=== PATIENT | male | born 1985 | race Caucasian/White ===

== ENCOUNTER → 2018-06-04 | Outpatient (CLI) | payer OTHER ==
[2018-06-04 20:10] LABS: BASO % 0.4 % (0.0-1.0); EOS # 0.3 10^3/uL (0.0-0.50); EOS % 3.9 % (0.0-3.0); HEMATOCRIT 47.5 % (42.0-52.0); HEMOGLOBIN 16.2 g/dl (13.5-17.5); LYMPH # 1.7 10^3/uL (1.5-4.5); LYMPH % 21.5 % (24.0-44.0); MEAN CORPUSCULAR HEMOGLOBIN 30.5 pg (27.0-33.0); MEAN CORPUSCULAR HGB CONC 34.1 g/dl (32.0-36.5); MEAN CORPUSCULAR VOLUME 89.3 fl (80.0-96.0); MONO # 0.7 10^3/uL (0.0-0.8); MONO % 8.4 % (0.0-5.0); NEUTROPHILS # 5.1 10^3/uL (1.8-7.7); NEUTROPHILS % 65.5 % (36.0-66.0); PLATELET COUNT, AUTOMATED 284 10^3/uL (150-450); RED BLOOD COUNT 5.32 10^6/uL (4.30-6.10); WHITE BLOOD COUNT 7.8 10^3/uL (4.0-10.0)
--- NOTE | 2018-06-05 03:46 | REP ---
Clinical: Left foot pain Technique: AP, lateral, bilateral oblique views left foot . Findings: The osseous structures and joint spaces are intact and essentially age-appropriate. Very minimal early degenerative change involving the first metatarsophalangeal joint cannot be excluded. There is no evidence for acute fracture or dislocation. Surrounding soft tissues are unremarkable. No subcutaneous emphysema or radiodense foreign body. Impression: Relatively age-appropriate examination. Mild early degenerative changes involving the first MTP joint cannot be excluded. No acute fracture or dislocation. Electronically Signed by Mustapha Chapin MD 06/05/2018 03:38 A
== END ==
LOC: M WUC 16:01
PROVIDERS: ATTEND Physician Assistant
DX: M79.672 Pain in left foot (principal)

== ENCOUNTER → 2019-08-08 | Outpatient (CLI) | payer OTHER | LOC: M LABSMTC 14:22 | PROVIDERS: ATTEND Family Medicine | DX: Z03.818 Encounter for observation for suspected exposure to other biological agents ruled out (principal); Z11.59 Encounter for screening for other viral diseases ==

== ENCOUNTER 2022-10-24 11:44 | Emergency (ER) | payer OTHER ==
[~2022-10-24] VITALS: Ht 182.9 cm; Wt 97.6 kg
[2022-10-24 13:05] LABS: BASO % 0.4 % (0.0-1.0); EOS % 0.2 % (0.0-3.0); HEMATOCRIT 47.4 % (42.0-52.0); HEMOGLOBIN 16.6 g/dl (13.5-17.5); LYMPH # 1.1 10^3/uL (1.5-5.0); LYMPH % 9.9 % (24.0-44.0); MEAN CORPUSCULAR HEMOGLOBIN 31.4 pg (27.0-33.0); MEAN CORPUSCULAR VOLUME 89.8 fl (80.0-96.0); MONO # 0.5 10^3/uL (0.0-0.8); MONO % 4.4 % (2.0-8.0); NEUTROPHILS % 84.7 % (36.0-66.0); PLATELET COUNT, AUTOMATED 234 10^3/uL (150-450); RED BLOOD COUNT 5.28 10^6/uL (4.30-6.10); WHITE BLOOD COUNT 10.6 10^3/uL (4.0-10.0)
[2022-10-24 13:28] LABS: LIPASE 44 U/L (12-53)
[2022-10-24 13:30] LABS: ALBUMIN 4.7 G/DL (3.2-5.2); ALKALINE PHOSPHATASE 68 U/L (46-116); ALT/SGPT 22 U/L (7.0-40); AST/SGOT 10 U/L (<34); BILIRUBIN,DIRECT 0.3 MG/DL (<0.4); BILIRUBIN,TOTAL 1.1 MG/DL (0.3-1.2); TOTAL PROTEIN 7.5 G/DL (5.7-8.2)
[2022-10-24] MEDS ORDERED: MORPHINE 4 MG/ML 1ML VIAL IV ONE (14:55)
[2022-10-24] MEDS ORDERED: ONDANSETRON 4MG 2ML VIAL IV ONE (14:55)
[2022-10-24] MEDS ORDERED: NS 1,000 ML IV ONE ×2 (14:55→17:35)
[2022-10-24] MEDS ORDERED: PANTOPRAZOLE 40MG VIAL IV ONE (14:55)
[2022-10-24] MEDS ORDERED: ISOVUE-370 76% 100ML VIAL As Ordered ONE (15:51)
[2022-10-24] MEDS ORDERED: PROMETHAZINE 25MG/ML 1ML VIAL IV ONE (17:35)
[2022-10-24 17:52] LABS: CK-MB VALUE MASS < 1.0 NG/ML (<3.6)
[2022-10-24 17:53] LABS: CPK CREATINE PHOSPHOKINASE 106 U/L (46-171); MB/CK RELATIVE INDEX 0.94 (< OR =4)
[2022-10-24 19:31] VITALS: BP 139/79; TEMP 97.8; O2SAT 100
[2022-10-24] MEDS ORDERED: ONDA4TAB6 PO (19:34)
[2022-10-24] MEDS ORDERED: CIPR-249 PO (19:34)
== END 2022-10-24 19:43 | disposition home or self-care (01) ==
LOC: M ED 11:44
DX: K80.66 Calculus of gallbladder and bile duct with acute and chronic cholecystitis without obstruction (principal); A04.0 Enteropathogenic Escherichia coli infection; I42.8 Other cardiomyopathies; F17.200 Nicotine dependence, unspecified, uncomplicated
CPT/HCPCS: 71260; 74177; 80047; 80076; 82550; 82553; 83690; 84484; 85025; 87507; 93005; 96374; 96375; 99284; C9113; J2405; J2550; Q9967

== ENCOUNTER → 2022-12-25 | Outpatient (CLI) | payer OTHER ==
[~2022-12-25] MED LIST: CIPR-249 PO; ONDA4TAB6 PO
== END ==
LOC: M LAB 12:08
PROVIDERS: ATTEND Surgery
DX: R10.9 Unspecified abdominal pain (principal); R11.0 Nausea; R19.7 Diarrhea, unspecified; Z53.9 Procedure and treatment not carried out, unspecified reason

== ENCOUNTER → 2023-01-02 | Outpatient (REF) | payer OTHER ==
[~2023-01-02] MED LIST changes: +TRAZ-252 PO
== END ==
LOC: M LAB REF 12:37
PROVIDERS: ATTEND Surgery
DX: R10.9 Unspecified abdominal pain (principal); R11.0 Nausea; R19.7 Diarrhea, unspecified

== ENCOUNTER 2023-02-02 11:44 | Day surgery (SDC) | payer OTHER ==
[~2023-02-02] VITALS: Ht 182.9 cm; Wt 90.7 kg
[~2023-02-02 11:44] MED LIST changes: +NS 1,000 ML IV ONE
[2023-02-02] MEDS ORDERED: GLYCOPYRROLATE INJ 0.2 MG/ML 2 ML VIAL As Ordered ONE (13:52)
[2023-02-02] MEDS ORDERED: LIDOCAINE 2% 100MG/5ML SDV (FOR ANES.) As Ordered ONE (13:52)
[2023-02-02] MEDS ORDERED: propofoL 200 MG/20 ML VIAL As Ordered ONE ×2 (13:52→14:11)
[2023-02-02 14:57] VITALS: BP 108/64; O2SAT 100
== END 2023-02-02 15:09 | disposition home or self-care (01) ==
LOC: M OPP 11:44
PROVIDERS: ATTEND Surgery
DX: R19.7 Diarrhea, unspecified (principal); R10.13 Epigastric pain; R11.2 Nausea with vomiting, unspecified; K44.9 Diaphragmatic hernia without obstruction or gangrene; K31.89 Other diseases of stomach and duodenum; K21.9 Gastro-esophageal reflux disease without esophagitis; F17.210 Nicotine dependence, cigarettes, uncomplicated; G47.30 Sleep apnea, unspecified; M10.9 Gout, unspecified

== ENCOUNTER 2023-02-26 11:00 | Emergency (ER) | payer OTHER ==
[~2023-02-26] VITALS: Ht 182.9 cm; Wt 90.9 kg
[~2023-02-26 11:00] MED LIST changes: -NS 1,000 ML IV ONE
[2023-02-26] MEDS ORDERED: ONDA-84 PO (11:30)
[2023-02-26] MEDS ORDERED: NS 1,000 ML IV ONE ×2 (13:50→16:25)
[2023-02-26] MEDS ORDERED: FAMOTIDINE 20MG/2ML VIAL IVP ONE (13:50)
[2023-02-26] MEDS ORDERED: ONDANSETRON 4MG 2ML VIAL IV ONE (13:50)
[2023-02-26] MEDS ORDERED: KETOROLAC 30 MG/ML 1ML VIAL IV ONE (13:55)
[2023-02-26 14:01] LABS: BASO % 0.3 % (0.0-1.0); HEMATOCRIT 48.3 % (42.0-52.0); HEMOGLOBIN 17.2 g/dl (13.5-17.5); LYMPH # 0.9 10^3/uL (1.5-5.0); LYMPH % 7.4 % (24.0-44.0); MEAN CORPUSCULAR HEMOGLOBIN 31.7 pg (27.0-33.0); MEAN CORPUSCULAR HGB CONC 35.6 g/dl (32.0-36.5); MONO # 0.4 10^3/uL (0.0-0.8); MONO % 2.8 % (2.0-8.0); NEUTROPHILS % 89.1 % (36.0-66.0); PLATELET COUNT, AUTOMATED 312 10^3/uL (150-450); RED BLOOD COUNT 5.43 10^6/uL (4.30-6.10); WHITE BLOOD COUNT 12.3 10^3/uL (4.0-10.0)
[2023-02-26 14:37] LABS: ALBUMIN 5.2 G/DL (3.2-5.2); ALKALINE PHOSPHATASE 61 U/L (46-116); ALT/SGPT 39 U/L (7.0-40); AST/SGOT 51 U/L (<34); BILIRUBIN,DIRECT 0.2 MG/DL (<0.4); BLOOD UREA NITROGEN 31 MG/DL (9-23); CALCIUM LEVEL 10.8 MG/DL (8.5-10.1); CARBON DIOXIDE LEVEL 23 MMOL/L (20-31); CHLORIDE LEVEL 101 MMOL/L (98-107); CREATININE FOR GFR 1.01 MG/DL (0.70-1.30); GLOMERULAR FILTRATION RATE > 60.0 (>60); GLUCOSE, FASTING 145 MG/DL (60-100); LIPASE 47 U/L (12-53); POTASSIUM SERUM 5.9 MMOL/L (3.5-5.1); SODIUM LEVEL 140 MMOL/L (136-145); TOTAL PROTEIN 8.4 G/DL (5.7-8.2)
[2023-02-26] MEDS ORDERED: METOCLOPRAMIDE INJ 10MG/2ML VIAL IV ONE (16:50)
[2023-02-26] MEDS ORDERED: PROT1TAB2 PO (18:38)
[2023-02-26] MEDS ORDERED: REGL10TA6 PO (18:38)
[2023-02-26 18:47] VITALS: BP 102/51; TEMP 98.2; O2SAT 98
== END 2023-02-26 19:00 | disposition home or self-care (01) ==
LOC: M ED 11:00
DX: E86.0 Dehydration (principal); R11.2 Nausea with vomiting, unspecified; R19.7 Diarrhea, unspecified
CPT/HCPCS: 80048; 80076; 81001; 83690; 84132; 85025; 93005; 96361; 96374; 96375; 99284; J1885; J2405; J2765